=== PATIENT | female | born 1965 | race Two or more races ===

== ENCOUNTER 2018-12-14 09:12 | Outpatient (CLI) | payer OTHER ==
[~2018-12-14 09:12] MED LIST: ASPIR 8181 MG; CATAFLAM50 MG PO; CEFTIN500 MG PO; KETO10TA2 PO; LEVAQUIN750 MG PO; LIPITOR40 MG; LISINOPRIL20 MG; ORPH100T PO; TUSSI PRES-B L120 M1 PO
== END 2018-12-14 09:22 | disposition home or self-care (01) ==
LOC: RAD 09:12
DX: J40 Bronchitis, not specified as acute or chronic (principal)

== ENCOUNTER 2019-01-22 12:49 | Emergency (ER) | payer OTHER ==
[~2019-01-22] VITALS: Ht 165.1 cm; Wt 61.2 kg
== END 2019-01-22 14:54 | disposition home or self-care (01) ==
LOC: ER 12:49
DX: N39.0 Urinary tract infection, site not specified (principal)

== ENCOUNTER 2019-03-27 08:18 | Emergency (ER) | payer OTHER ==
[~2019-03-27] VITALS: Ht 162.6 cm; Wt 61.2 kg
== END 2019-03-27 11:19 | disposition home or self-care (01) ==
LOC: ER 08:18
DX: S00.83XA Contusion of other part of head, initial encounter (principal); S20.212A Contusion of left front wall of thorax, initial encounter; M94.0 Chondrocostal junction syndrome [Tietze]; W18.39XA Other fall on same level, initial encounter; Y93.89 Activity, other specified; Y92.89 Other specified places as the place of occurrence of the external cause; Y99.8 Other external cause status